=== PATIENT | male | born 1970 | race Two or more races ===

== ENCOUNTER 2025-08-02 16:03 | Emergency (ER) | payer BC, SELFPAY ==
--- NOTE | 2025-08-02 16:27 | EKG_ITS ---
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
--- NOTE | 2025-08-02 16:29 | XR_ITS ---
Examination: Abdomen sonogram, Limited Date and time of exam: 08/02/2025 at 5:21 p.m. INDICATION: Epigastric pain for 3 days COMPARISON: CT abdomen and pelvis 06/27/2017 Technique: Real-time morgan scale transabdominal sonographic images of the upper abdomen obtained. Findings: Gallbladder: No cholelithiasis or sludge. Gallbladder wall thickening noted, measuring up to 4.7 mm on one image but mostly just under 3 mm. Multiple polypoid excrescences are noted along the gallbladder wall projecting into the gallbladder lumen, measuring between 2 mm to 4 mm in size. No pericholecystic fluid. No reported pain with direct transducer pressure over the gallbladder. The common bile duct measures 0.2 cm. No abnormal intrahepatic bile duct dilatation. Hepatic size is within normal limits, measured at 14.8 cm. The liver demonstrates diffuse increased and heterogeneous echotexture, consistent with hepatic steatosis as seen on prior CT. Color Doppler demonstrates patency of the main portal vein with normal hepatopetal flow. Color Doppler also shows blood flow throughout the hepatic veins and visualized IVC. The visualized portions of the pancreas show no acute finding or focal lesion. No evidence for right-sided hydronephrosis or mass. No right upper quadrant ascites. IMPRESSION: Mild gallbladder wall thickening with small polypoid excrescences in the 2 to 4 mm size range. No gallstones, sludge or pericholecystic fluid. No abnormal bile duct dilatation. Diffuse hepatic steatosis is reidentified.
[2025-08-02 16:36] VITALS: BP 144/89; PULSE 100; RESP 18; TEMP 36.7; O2SAT 98; BMI 32.1
[2025-08-02 16:38] VITALS: BP 142/84; BP 147/104; BP 147/91; PULSE 104; PULSE 108; PULSE 118
--- NOTE | 2025-08-02 16:51 | EDNOTE_ITS ---
<Statement entered by Erica Rudd MD - 08/06/25 16:32> I, Erica Rudd MD, have reviewed the history, exam, and assessment of the patient. I have evaluated the patient independently and agree with the plan of care documented by [ ]. All diagnostic studies were reviewed and discussed. I confirm the diagnosis as documented by the Resident. I was present during the Medical Decision Making for this patient. The patient's plan of care was created between myself and the Resident and consistent with our discussion of the patient's case. ED Dizzyness RME/HPI General Chief Complaint: Dizziness Stated Complaint: DIZZY, ANXIETY, WEAKNESS SINCE THURSDAY, ABD PAIN Arrival date/time: 08/02/25 16:03 RME / HPI RME / HPI Narrative: Patient is a 55-year-old female with a past medical history of vertigo who presented to the emergency room with a chief complaint of dizziness, generalized weakness, and epigastric pain radiating to patient's side and to the right shoulder. Patient stated that dizziness is random occurring mostly with walking. Denies sudden head movements causes dizziness or positional changes. Paulina stated he has history of vertigo. Patient also complaining of epigastric pain radiating shoulder. Denies fevers or chills at home. Recent weight loss of 30lbs since April of this year. No diarrhea. No history of abdominal surgery. Denied flank pain. Denied cardiac history. Denied SOB. PCP recently made referall w/ Gastroenterology, Dr. Mathis. CBC CMP Lipase UA and US gallbladder Related Data Previous Rx's ?Medication ?Instructions ?Recorded Hydrocodone/Acetaminophen * (NORCO 1 tab PO Q6H PRN PA IN #12 tabs 06/27/17 5/325 *) famotidine 20 mg tablet 20 mg PO QDAY #30 tabs 07/10 sucralfate 1 gram tablet (Carafate) 1 g PO BID #20 tab s 07/10/23 dicyclomine 20 mg tablet 20 mg PO QID PRN abdominal p ain 08/02/25 #20 tabs Allergies Allergy/AdvReac Type Severity Reaction Status Date / Time No Known Allergies Allergy Verified 08/02/25 16:07 Review of Systems Review of Systems Narrative Review of Systems: General appearance:Yes dizziness, NO weight change, NO fatigue, NO weakness, NO fever, NO chills, NO night sweats, No cough Skin: NO rash, NO itching, NO sores, NO moles HEENT: NO Trauma, NO nausea, NO vomiting, NO visual changes, NO blurry vision, NO double vision, NO tinnitus, NO vertigo, NO ear discharge, NO rhinorrhea, NO stuffiness, NO sneezing, NO allergy, NO epistaxis. NO Hoarseness, NO sore throat, NO swollen neck. Cardiac: NO Palpitations, NO dyspnea on exertion, NO orthopnea, NO paroxysmal nocturnal dyspnea, NO edema Respiratory: NO Shortness of Breath, NO Wheezing, NO Cough, NO Sputum, NO hemoptysis GI:NO appetite, Yes nausea, NO vomiting, NO dysphagia, NO changes in bowel frequency, NO stool color, NO diarrhea, NO constipation, NO hemetemesis, NO hemorrhoids, NO melena, NO hematechezia, YES abdominal pain, NO jaundice Renal: NO frequency, NO hesitancy, NO urgency, NO hematuria, NO nocturia, NO incontinence MSK: NO muscle weakness, NO gout, NO arthritis, NO muscle stiffness Neuro: NO headaches, NO tremors, NO weakness, NO paralysis, NO seizures, NO loss of consciousness, NO numbness. Hem: NO anemia, NO easy bruising/bleeding, NO petechiae, NO purpura Endo: NO heat/cold intolerance, NO excessive sweating, NO polyuria, NO polydipsia, NO polyphagia, NO thyroid problems, NO diabetes Pysch: NO mood, NO anxiety, NO depression ED Exam Narrative Physical exam: General Appearance: Alert & Oriented X3, well-nourished who is sitting on exam table in no acute distress. HEENT: Skull symmetrical and atraumatic. Conjunctivae pink and moist. Pupils equal, round, reactive to light and accommodation (PERRL). External ear without lesion or discharge. S Cardio: Normal Rate and Rhythm with S1 and S2 heart sounds. No murmurs or extra heart sounds auscultated. No bruits on carotid auscultation. No peripheral edema or cyanosis. Lungs: Symmetric with good expansion. Chest and back non-tender. Breath sounds vesicular without crackles, wheezing or rhonchi Abdomen: tender, no-distended, Normal Reactive Bowel Sounds, Barraza sign negative Neuro: Alert, cooperative, oriented to person, place, and time. Speech clear. CN grossly intact. Upper motor strength 5/5 and Lower motor strength 5/5. Sensation intact. Course Course Course Narrative: CBC CMP lipase US gallbladder Quality Measures none Orders Category Date Time Status Bedside COVID-19 Antigen Test NOW Care 08/02/25 16:32 Completed EKG (ED ONLY) *Do not use* NOW Care 08/02/25 16:27 Completed Orthostatic Vitals X1 Care 08/02/25 16:31 Completed EKG (ED Only) Stat Exams 08/02/25 16:27 Draft US gall bladder Stat Exams 08/02/25 16:29 Completed CBC Stat Lab 08/02/25 16:48 Completed Comprehensive Metabolic Panel Stat Lab 08/02/25 16:48 Completed Drug Screen,Urine Stat Lab 08/02/25 17:18 Completed FLU A&B [Influenza A & B Rapid Panel] Stat Lab 08/02/25 20:09 Completed Lipase Stat Lab 08/02/25 16:48 Completed Magnesium Stat Lab 08/02/25 16:48 Completed Partial Thromboplastin Time Stat Lab 08/02/25 16:48 Completed Prothrombin Time with INR Stat Lab 08/02/25 16:48 Completed Troponin I Stat Lab 08/02/25 16:48 Completed Urinalysis, C/S if Indicated Stat Lab 08/02/25 17:18 Completed Vital Signs Vital signs: Vital Signs Temperature 98.1 F 08/02/25 16:36 Pulse Rate 100 08/02/25 16:36 Respiratory Rate 18 08/02/25 16:36 Blood Pressure 144/89 H 08/02/25 16:36 Pulse Oximetry (%) 98 08/02/25 16:36 Oxygen Delivery Method Room Air 08/02/25 16:36 Dizziness Patient data External records reviewed:: [facility] previous records Clinical information provided by:: patient and family Social determinants that could affect healthcare access:: housing Patient has the following chronic illnesses:: History of Vertigo and GERD How is presenting disease/condition affected by chronic disease/condition?: exacerbated by (GERD ) Evaluation data The following diagnostics were reviewed and interpreted by me:: lab results, radiology exam(s) and EKG tracing(s) Lab and/or radiology exams considered but not ordered:: none Interpretation Summary: Pending images and lab test Medications / Prescriptions Medications or Prescriptions considered but not ordered:: none Medication administrations:: none Consultations Consultation(s) initiated? (list below): No Diagnosis Dizziness Differential Diagnosis: benign paroxysmal positional vertigo and other (cholecystitis vs appendicitis vs biliary dyskinesia ) Most likely diagnosis given after review of the tests above:: Concern for biiliary dyskinesia---->pending final images and labs, signed off to night team Admission Indicated Admission indicated?: not indicated (pending final results ) Explain why admission is indicated or not indicated:: Patients abdominal tenderness likely secondary to biliary dyskinesia given rapid weight loss, pending US -->signed off to night team, Dr. Johnston Admission Request Was there a request for admission?: No Disposition Plan Disposition Plan: other (specify) (Pending abdominal pain work up, pending labs and images. ) Discharge Plan Plan Patient Disposition: HOME (Self Care) Prescriptions/Referrals Prescriptions/Med Rec: New dicyclomine 20 mg tablet 20 mg PO QID PRN (Reason: abdominal pain) Qty: 20 0RF No Action Hydrocodone/Acetaminophen * (NORCO 5/325 *) 1 TAB tablet 1 tab PO Q6H PRN (Reason: PAIN) Qty: 12 0RF famotidine 20 mg tablet 20 mg PO QDAY Qty: 30 1RF sucralfate [Carafate] 1 gram tablet 1 g PO BID Qty: 20 0RF Referrals: No Primary/Family,Physician [Primary Care Provider] - In 1 week Problem List Clinical Impression: Abdominal pain Patient/Caregiver Discharge Instructions Education Materials: Abdominal Pain Additional Instructions: There are no evidence of gallstones. Continue current medications. Bentyl as prescribed. Keep your follow-up appointment with GI specialist, Dr. Mathis. Print Language: Thai Stand Alone Forms: Jacy Award Info., Patient Portal Info Letter
[2025-08-02 17:02] LABS: Basophils # (Auto) 0.1 Thou/mm3 (0.0-0.2); Basophils % (Auto) 1 % (0-2.5); Eosinophils # (Auto) 0.3 Thou/mm3 (0.0-0.5); Eosinophils % (Auto) 4 % (0-10); Hematocrit 47.7 % (41.0-53.0); Hemoglobin 15.7 g/dL (13.5-16.0); Immature Granulocytes Auto 0.02 Thou/mm3 (0.00-0.00); Lymphocytes # (Auto) 2.4 Thou/mm3 (1.0-4.8); Lymphocytes % (Auto) 31 % (10-50); Mean Corpuscular HGB Conc 32.9 g/dl (31.0-37.0); Mean Corpuscular Hemoglobin 30.0 pg (25.0-35.0); Mean Corpuscular Volume 91 fL (80-100); Monocytes # (Auto) 0.7 Thou/mm3 (0.0-0.8); Monocytes % (Auto) 10 % (0-12); Neutrophils # (Auto) 4.3 Thou/mm3 (1.8-7.7); Neutrophils % (Auto) 55 % (37-80); Nucleated Red Blood Cell # 0.00 Thou/mm3 (0.00-0.00); Nucleated Red Blood Cell % 0 /100 WBC (0); Platelet Count 249 Thou/mm3 (140-440); RDW Standard Deviation 47.8 fL (35.1-43.9); Red Blood Count 5.24 Miln/mm3 (4.50-5.90); White Blood Count 7.8 Thou/mm3 (3.8-10.6)
[2025-08-02 17:23] LABS: INR 1.0 (0.9-1.3); Partial Thromboplastin Time 26.9 Seconds (22.0-36.0); Prothrombin Time 10.9 Seconds (9.0-12.2)
[2025-08-02 17:32] LABS: Collection Type, Urine Clean Catch; Squamous Epithelial Cell,Urine 0 /hpf (0-5)
[2025-08-02 17:34] LABS: Alanine Aminotransferase 29 U/L (10-49); Albumin, Serum 5.2 gm/dL (3.5-5.0); Albumin/Globulin Ratio 2.6 (1.2-2.2); Alkaline Phosphatase 75 U/L (46-116); Anion Gap 10 (7-16); Aspartate Amino Transferase 18 U/L (0-34); BUN/Creatinine Ratio 10 Ratio (12-20); Bilirubin,Total 0.4 mg/dL (0.3-1.2); Blood Urea Nitrogen 10 mg/dL (9-23); Calcium 9.9 mg/dL (8.3-10.6); Calcium (Corrected) 9.9 mg/dL (8.5-10.1); Carbon Dioxide 28.9 mMol/L (20.0-31.0); Chloride 105 mMol/L (98-107); Creatinine (Component) 1.0 mg/dL (0.6-1.3); Estimated Creatinine Clearance 103.8 mL/min (>60); Globulin 2.0 gm/dL (2.3-3.5); Glucose 97 mg/dL (74-106); Lipase 43 U/L (12-53); Magnesium 2.1 mg/dL (1.6-2.6); Osmolality,Calculated 285 (275-295); Potassium 4.5 mMol/L (3.4-5.1); Sodium 144 mMol/L (136-145); Total Protein 7.2 gm/dL (5.7-8.2); Troponin I < 0.002 ng/mL (0.0-0.045); eGFR > 60 See Note
[2025-08-02 17:44] LABS: Bacteria,Urine Rare; Bilirubin,Urine Negative (Negative); Blood,Urine Negative (Negative); Clarity,Urine Clear (Clear/Hazy); Color,Urine Yellow (Lt Yel-Yel); Culture Indicated,Urine Not Indicated; Glucose, Urine Negative (Negative); Ketones,Urine Negative (Negative); Leukocyte Esterase,Urine Negative (Negative); Nitrite,Urine Negative (Negative); PH,Urine 6.0 (5.0-7.0); Protein,Urine Trace (Neg - Trace); RBC,Urine 1 /hpf (0-3); Specific Gravity,Urine 1.026 (1.001-1.035); Urobilinogen,Urine Negative mg/dL (0.0-1.0); WBC,Urine < 1 /hpf (0-5)
[2025-08-02 17:47] LABS: Amphetamine/Methamp Scrn,U Negative (Negative); Barbiturate Screen,Urine Negative (Negative); Benzodiazepines Screen,Urine Negative (Negative); Benzoylecgonine Screen, Ur Negative (Negative); Fentanyl Screen,Urine Negative (Negative); Opiate Screen,Urine Negative (Negative); THC Screen,Urine Negative (Negative)
--- NOTE | 2025-08-02 18:47 | EDNOTE_ITS ---
Emergency Room Addendum <Salima Desai - Last Filed: 08/02/25 20:09> Addendum Narrative: 1800: Care assumed from Dr. Balbuena, attending Dr. Rudd. Past medical, surgical, social and family history reviewed. Vitals and home medications reviewed. Results and treatment plan discussed. I will assume the care of the patient at this time and will follow the patient. Please refer to the emergency department record for history and examination from initial visit. <Remigio T DO Preston - Last Filed: 08/02/25 20:17> Addendum Narrative: 1800: Care assumed from Dr. Balbuena, attending Dr. Rudd. Past medical, surgical, social and family history reviewed. Vitals and home medications reviewed. Results and treatment plan discussed. I will assume the care of the patient at this time and will follow the patient. Please refer to the emergency department record for history and examination from initial visit. Case was signed out to me awaiting gallbladder ultrasound. Gallbladder ult rasound came back showing no Geovanni cholecystic fluid and no stones and no sludge. Normal common bile duct. There was the possibility of polyps. LFTs are normal. Patient has no fever or white count. He already has an appointment with Dr. Mathis for this epigastric abdominal pain. He is to continue all current medications. Bentyl as prescribed.
[2025-08-02 20:28] LABS: Influenza A Ag Negative; Influenza B Ag Negative
[2025-08-02 20:40] VITALS: PULSE 99; RESP 18; TEMP 36.6; O2SAT 99
== END 2025-08-02 20:41 | disposition home or self-care (01) ==
PROVIDERS: Emergency Provider Emergency Medicine
DX: R10.13 Epigastric pain (principal); R00.0 Tachycardia, unspecified
CPT/HCPCS: 36415; 76705; 80053; 80307; 81001; 83690; 83735; 84484; 85025; 85610; 85730; 87502; 87635; 93005; 99283